=== PATIENT | male | born 1985 | race Two or more races ===

== ENCOUNTER 2019-07-20 17:49 | Outpatient (CLI) | payer OTHER | END 2019-07-20 18:13 | disposition home or self-care (01) | LOC: LAB 17:49 | DX: R50.9 Fever, unspecified (principal); R05 Cough; R56.9 Unspecified convulsions ==

== ENCOUNTER 2019-08-25 10:31 | Outpatient (CLI) | payer OTHER | END 2019-08-25 10:44 | disposition home or self-care (01) | LOC: LAB 10:31 | DX: J20.8 Acute bronchitis due to other specified organisms (principal); J44.9 Chronic obstructive pulmonary disease, unspecified ==

== ENCOUNTER 2025-03-16 14:58 | Emergency (ER) | payer OTHER ==
[~2025-03-16] VITALS: Ht 177.8 cm; Wt 90.7 kg
[2025-03-16] MEDS ORDERED: ENALAPRILAT DIHYDRATE 1.25 MG/ML VIAL IV STA (15:36)
[2025-03-16] MEDS ORDERED: DIPHENHYDRAMINE HCL 50 MG/ML VIAL 1ML IM STA (15:36)
[2025-03-16] MEDS ORDERED: DEXAMETHASONE SODIUM PHOSPHATE 4 MG/ML VIAL IM STA (15:37)
[2025-03-16] MEDS ORDERED: KETOROLAC TROMETHAMINE 15 MG VIAL IM STA (15:37)
[2025-03-16] MEDS ORDERED: KETOROLAC TROMETHAMINE 30 MG VIAL ONE (16:24)
[2025-03-16] MEDS ORDERED: DIPHENHYDRAMINE HCL 50 MG/ML VIAL 1ML ONE (16:25)
[2025-03-16] MEDS ORDERED: ENALAPRILAT DIHYDRATE 1.25 MG/ML VIAL IV ONE (16:25)
[2025-03-16] MEDS ORDERED: DEXAMETHASONE SODIUM PHOSPHATE 4 MG/ML VIAL ONE (16:25)
[2025-03-16 17:15] LABS: BASO % 0.5 % (0.1-1.2); EOS # 0.17 (0.04-0.54); EOS % 2.3 % (0.7-7.0); LYMPH # 2.12 (1.18-3.74); LYMPH % 28.9 % (19.3-53.1); MEAN PLATELET VOLUME 9.30 fl (9.4-12.4); MONO # 0.68 (0.24-0.82); MONO % 9.3 % (4.7-12.5); NEUT # 4.30 (1.56-6.13); NEUT % 58.7 % (34.0-71.1); RED CELL DISTRIBUTION WIDTH 12.0 % (11.6-14.4)
[2025-03-16 18:19] LABS: BUN CREA RATIO 16.0 (7.0-25.0); CREATININE SERUM 0.82 mg/dL (0.70-1.30); GFR 104.06; GLUCOSE FASTING 88.0 mg/dL (65-100); OSMOLALITY SERUM 285.0 MOSM/KG (275-295); TSH 0.757 uIU/mL (0.358-3.74)
[2025-03-16] MEDS ORDERED: LOSARTAN POTASS25 MG PO (18:35)
[2025-03-16] MEDS ORDERED: ACETAMINOPHEN500 M1 PO (18:35)
[2025-03-16] MEDS ORDERED: DICLOFENAC POTA50 MG PO (18:35)
== END 2025-03-16 19:22 | disposition home or self-care (01) ==
LOC: ER 14:59
PROVIDERS: General Practice
DX: R51.9 Headache, unspecified (principal); I10 Essential (primary) hypertension